=== PATIENT | female | born 1960 | race Caucasian/White ===

== ENCOUNTER 2020-06-23 08:07 | Inpatient (IN) ==
[~2020-06-23 08:07] MED LIST: *HR* FentaNYL (PF) 100 MCG/2 ML VIAL IVP ONE; *HR* Midazolam HCl 2 MG/2 ML VIAL IVP ONE
[2020-06-23] MEDS ORDERED: cefOXitin 2,000 MG in Water for inj. (sterile) 20 ML IVP ONE ×2 (08:39→09:28)
[2020-06-23] MEDS ORDERED: 0.9 % Sodium Chloride 500 ML ONE ×2 (08:44→12:20)
[2020-06-23] MEDS ORDERED: Lidocaine/EPI 1:100k 1% 50 ML VIAL ONE ×2 (08:44→12:20)
[2020-06-23] MEDS ORDERED: Ringers Solution, Lactated 1,000 ML IVC SCH (08:45)
[2020-06-23 10:02] LABS: Prothrombin Time 11.5 Seconds (9.4-12.1)
[2020-06-23 10:08] LABS: Basophils % 0.6 %; Eosinophils # 0.2 K/mcL (0.0-0.6); Eosinophils % 3.9 %; Hematocrit 41.3 % (35.3-44.9); Hemoglobin 13.8 g/dL (11.5-15.4); Lymphocytes # 1.6 K/mcL (0.6-4.6); Lymphocytes % 35.3 %; Mean Corpuscular HGB Conc 33.4 g/dL (31.6-35.5); Mean Corpuscular Hemoglobin 28.4 pg (28.0-33.3); Mean Platelet Volume 9.9 fL (9.4-12.4); Monocytes # 0.4 K/mcL (0.0-1.3); Monocytes % 7.5 %; Neutrophils # 2.4 K/mcL (1.6-8.9); Platelet Count 197 K/mcL (140-400); Red Blood Count 4.86 M/mcL (3.82-4.97); Red Cell Distribution Width 12.6 % (11.5-14.5); Segmented Neutrophils % 52.7 %; White Blood Count 4.6 K/mcL (4.3-11.1)
[2020-06-23] MEDS ORDERED: Isovue-300 150 ML INFUS..BTL IVP ONE ×2 (10:26→12:33)
[2020-06-23] MEDS ORDERED: Lidocaine HCL 4 ML Topical Solution (Laryng-O-Jet Kit Sterile Pak) TP ONE (11:06)
[2020-06-23] MEDS ORDERED: Dexamethasone 4 MG/ML VIAL ONE (11:06)
[2020-06-23] MEDS ORDERED: Ondansetron 4 MG/2 ML VIAL ONE (11:06)
[2020-06-23] MEDS ORDERED: *HR* Succinylcholine 200 MG/10 ML VIAL IVP ONE (11:06)
[2020-06-23] MEDS ORDERED: Lidocaine -MPF 2% 2 ML VIAL ONE (11:06)
[2020-06-23] MEDS ORDERED: *HR* Propofol 200 MG/20 ML VIAL IVP ONE (11:07)
[2020-06-23] MEDS ORDERED: *HR* FentaNYL (PF) 100 MCG/2 ML VIAL ONE ×2 (11:07→11:10)
[2020-06-23] MEDS ORDERED: *HR* Midazolam HCl 2 MG/2 ML VIAL IVP ONE (11:09)
[2020-06-23] MEDS ORDERED: *HR* FentaNYL (PF) 100 MCG/2 ML VIAL IVP ONE (11:09)
[2020-06-23] MEDS ORDERED: *HR* Midazolam HCl 2 MG/2 ML VIAL ONE (11:10)
[2020-06-23] MEDS ORDERED: Isovue-300 50ML VIAL ONE (12:09)
[2020-06-23] MEDS ORDERED: Ondansetron 4 MG/2 ML VIAL IVP ONE (12:20)
[2020-06-23] MEDS ORDERED: Naloxone 0.4 MG/ML INJ IVP PRN (13:35)
[2020-06-23] MEDS ORDERED: Ondansetron 4 MG/2 ML VIAL IVP PRN (13:35)
[2020-06-23] MEDS ORDERED: Acetaminophen 325 MG TABLET PO PRN (13:35)
[2020-06-23 14:40] LABS: Hematocrit 40.6 % (35.3-44.9); Hemoglobin 13.2 g/dL (11.5-15.4); Mean Corpuscular HGB Conc 32.5 g/dL (31.6-35.5); Mean Corpuscular Hemoglobin 27.9 pg (28.0-33.3); Mean Corpuscular Volume 85.8 fL (83.0-100.0); Platelet Count 153 K/mcL (140-400); Red Blood Count 4.73 M/mcL (3.82-4.97); Red Cell Distribution Width 12.4 % (11.5-14.5); White Blood Count 2.6 K/mcL (4.3-11.1)
[2020-06-23 15:00] LABS: Lymphocytes # 0.5 K/mcL (0.6-4.6); Monocytes # 0.1 K/mcL (0.0-1.3); Platelet Estimate Normal (Normal); Potassium 3.8 mEq/L (3.5-5.1)
[2020-06-23] MEDS ORDERED: 0.9 % Sodium Chloride 1,000 ML IVC ONE (15:00)
[2020-06-23] MEDS ORDERED: 0.9 % Sodium Chloride 500 ML IVC ONE (15:00)
[2020-06-23 15:01] LABS: Anisocytosis 1+ (Not Present); Large Platelets Present (Not Present)
[2020-06-23] MEDS: Piperacillin/Tazobactam 3.375 GM in 0.9 % Sodium Chloride Mini Bag 100 ML IVPB SCH ×2 (15:12→23:39)
[2020-06-23] MEDS ORDERED: Piperacillin/Tazobactam 3.375 GM in 0.9 % Sodium Chloride Mini Bag 100 ML IVPB SCH (16:00)
[2020-06-23] MEDS: 0.9 % Sodium Chloride 1,000 ML IVC SCH (16:52)
[2020-06-23] MEDS ORDERED: Acetaminophen IV 1,000 MG/100 ML INFUS..BTL IVPB SCH (18:00)
[2020-06-23 18:13] LABS: Bacteria,Urine Few per hpf (None-Few); Bilirubin,Urine Negative (Negative); Blood,Urine Large (Negative); Clarity,Urine Turbid (Clear); Color,Urine Light-Orange (Yellow); Glucose,Urine (UA) Normal (Normal); Ketones,Urine Negative (Negative); Leukocyte Esterase,Urine Large (Negative); Nitrite,Urine Negative (Negative); Protein,Urine 50 mg/dL (Neg-Trace); RBC,Urine TNTC per hpf (0-3); Specific Gravity,Urine 1.016 (1.010-1.025); Urobilinogen,Urine Normal (Normal); WBC,Urine 30-50 per hpf (0-3)
[2020-06-24] MEDS: 0.9 % Sodium Chloride 1,000 ML IVC SCH ×3 (01:28→19:14)
[2020-06-24 06:40] LABS: Hematocrit 34.3 % (35.3-44.9); Mean Corpuscular HGB Conc 33.2 g/dL (31.6-35.5); Mean Corpuscular Hemoglobin 29.1 pg (28.0-33.3); Mean Corpuscular Volume 87.5 fL (83.0-100.0); Mean Platelet Volume 10.1 fL (9.4-12.4); Platelet Count 114 K/mcL (140-400); Red Blood Count 3.92 M/mcL (3.82-4.97); Red Cell Distribution Width 13.2 % (11.5-14.5)
[2020-06-24 06:46] LABS: Hemoglobin 11.4 g/dL (11.5-15.4)
[2020-06-24 07:00] LABS: Potassium 3.8 mEq/L (3.5-5.1)
[2020-06-24 07:14] LABS: Neutrophils # 14.6 K/mcL (1.6-8.9)
[2020-06-24 07:15] LABS: Lymphocytes # 0.7 K/mcL (0.6-4.6); Monocytes # 0.7 K/mcL (0.0-1.3); Platelet Estimate Decreased (Normal)
[2020-06-24] MEDS ORDERED: 0.9 % Sodium Chloride 1,000 ML IVC ONE (07:15)
[2020-06-24] MEDS: Piperacillin/Tazobactam 3.375 GM in 0.9 % Sodium Chloride Mini Bag 100 ML IVPB SCH ×3 (07:22→23:45)
[2020-06-25] MEDS: 0.9 % Sodium Chloride 1,000 ML IVC SCH ×2 (05:09→14:55)
[2020-06-25 05:37] LABS: Red Cell Distribution Width 13.7 % (11.5-14.5)
[2020-06-25 05:39] LABS: Hemoglobin 10.7 g/dL (11.5-15.4); Mean Corpuscular HGB Conc 32.4 g/dL (31.6-35.5); Mean Corpuscular Hemoglobin 28.5 pg (28.0-33.3); Red Blood Count 3.75 M/mcL (3.82-4.97); White Blood Count 13.9 K/mcL (4.3-11.1)
[2020-06-25 05:46] LABS: Platelet Count 89 K/mcL (140-400)
[2020-06-25 05:52] LABS: BUN/Creatinine Ratio 14 (6-26); Blood Urea Nitrogen 14 mg/dL (8-23); Calcium 8.2 mg/dL (8.6-10.3); Carbon Dioxide 21 mEq/L (23-29); Chloride 115 mEq/L (98-107); Glucose 182 mg/dL (70-105); Osmolality,Calculated 295 (280-300); Potassium 3.7 mEq/L (3.5-5.1); Sodium 140 mEq/L (136-145); eGFR For African Americans > 60 (> 60); eGFR For Non-African Americans 54 (> 60)
[2020-06-25 06:26] LABS: Eosinophils # 0.3 K/mcL (0.0-0.6); Lymphocytes # 1.1 K/mcL (0.6-4.6); Monocytes # 0.6 K/mcL (0.0-1.3); Platelet Estimate Decreased (Normal)
[2020-06-25] MEDS: Piperacillin/Tazobactam 3.375 GM in 0.9 % Sodium Chloride Mini Bag 100 ML IVPB SCH ×2 (07:06→14:56)
[2020-06-25] MEDS: Acetaminophen 325 MG TABLET PO PRN ×2 (11:40→21:10)
[2020-06-25 20:24] LABS: Adenovirus F 40/41 PCR Not detected (Not detect); Astrovirus PCR Not detected (Not detect); C.difficile Toxin A/B Gene PCR Not detected (Not detect); Campylobacter by PCR Not detected (Not detect); Cryptosporidium by PCR Not detected (Not detect); Cyclospora cayetanensis PCR Not detected (Not detect); E. coli O157 by PCR Not detected (Not detect); Entamoeba histolytica PCR Not detected (Not detect); Enteroaggregative E.coli(EAEC) Not detected (Not detect); Enteropathogenic E.coli(EPEC) Not detected (Not detect); Enterotoxigenic E.coli (ETEC) Not detected (Not detect); Giardia lamblia PCR Not detected (Not detect); Norovirus GI/GII PCR Not detected (Not detect); Plesiomonas shigelloides PCR Not detected (Not detect); Rotavirus A PCR Not detected (Not detect); Salmonella PCR Not detected (Not detect); Sapovirus PCR Not detected (Not detect); Shig/EnteroinvasiveE coli EIEC Not detected (Not detect); Shigalike tox-prod E coli STEC Not detected (Not detect); Vibrio PCR Not detected (Not detect); Vibrio cholerae PCR Not detected (Not detect); Yersinia enterocolitica PCR Not detected (Not detect)
[2020-06-26] MEDS: Piperacillin/Tazobactam 3.375 GM in 0.9 % Sodium Chloride Mini Bag 100 ML IVPB SCH ×3 (00:27→17:32)
[2020-06-26] MEDS: 0.9 % Sodium Chloride 1,000 ML IVC SCH ×3 (00:28→22:36)
[2020-06-26 04:53] LABS: Basophils # 0.1 K/mcL (0.0-0.2); Basophils % 0.5 %; Eosinophils # 0.3 K/mcL (0.0-0.6); Eosinophils % 1.9 %; Hematocrit 34.4 % (35.3-44.9); Hemoglobin 11.2 g/dL (11.5-15.4); Immature Granulocytes % 2.9 % (0-4); Lymphocytes # 1.5 K/mcL (0.6-4.6); Lymphocytes % 11.6 %; Mean Corpuscular HGB Conc 32.6 g/dL (31.6-35.5); Mean Corpuscular Hemoglobin 28.4 pg (28.0-33.3); Mean Corpuscular Volume 87.1 fL (83.0-100.0); Mean Platelet Volume 11.2 fL (9.4-12.4); Monocytes # 0.6 K/mcL (0.0-1.3); Monocytes % 4.8 %; Neutrophils # 10.1 K/mcL (1.6-8.9); Platelet Count 122 K/mcL (140-400); Red Blood Count 3.95 M/mcL (3.82-4.97); Red Cell Distribution Width 13.5 % (11.5-14.5); Segmented Neutrophils % 78.3 %; White Blood Count 12.9 K/mcL (4.3-11.1)
[2020-06-26 05:10] LABS: BUN/Creatinine Ratio 8 (6-26); Blood Urea Nitrogen 8 mg/dL (8-23); Calcium 8.8 mg/dL (8.6-10.3); Carbon Dioxide 22 mEq/L (23-29); Chloride 118 mEq/L (98-107); Glucose 88 mg/dL (70-105); Osmolality,Calculated 300 (280-300); Potassium 3.8 mEq/L (3.5-5.1); Sodium 146 mEq/L (136-145); eGFR For African Americans > 60 (> 60); eGFR For Non-African Americans 54 (> 60)
[2020-06-26] MEDS: Acetaminophen 325 MG TABLET PO PRN (07:50)
[2020-06-26] MEDS ORDERED: 0.9 % Sodium Chloride 500 ML ONE ×2 (08:47→10:25)
[2020-06-26] MEDS ORDERED: *HR* FentaNYL (PF) 100 MCG/2 ML VIAL ONE ×2 (10:25→17:02)
[2020-06-26] MEDS ORDERED: *HR* FentaNYL (PF) 100 MCG/2 ML VIAL IVP ONE (10:33)
[2020-06-26] MEDS ORDERED: Isovue-300 150 ML INFUS..BTL IVP ONE (10:38)
[2020-06-26] MEDS ORDERED: amLODIPine 5 MG TABLET PO SCH (13:15)
[2020-06-26] MEDS ORDERED: Isovue-300 50ML VIAL ONE ×2 (15:52→16:23)
[2020-06-26] MEDS ORDERED: Lidocaine 1% 20 ML MDV ONE (16:20)
[2020-06-26] MEDS ORDERED: *HR* HYDROmorphone PF 0.5 MG/0.5 ML SYRINGE IVP PRN (16:28)
[2020-06-26] MEDS ORDERED: Ondansetron 4 MG/2 ML VIAL IVP PRN ×2 (16:28→21:53)
[2020-06-26] MEDS ORDERED: *HR* Midazolam HCl 2 MG/2 ML VIAL ONE (17:02)
[2020-06-26] MEDS ORDERED: *HR* Propofol 200 MG/20 ML VIAL IVP ONE (17:02)
[2020-06-26] MEDS ORDERED: *HR* Succinylcholine 200 MG/10 ML VIAL IVP ONE (17:02)
[2020-06-26] MEDS ORDERED: Ondansetron 4 MG/2 ML VIAL ONE (18:12)
[2020-06-26] MEDS ORDERED: Dexamethasone 4 MG/ML VIAL ONE (18:12)
[2020-06-26] MEDS ORDERED: *HR* HYDROMORPHONE 2 MG/ML VIAL ONE (19:23)
[2020-06-26] MEDS ORDERED: Acetaminophen 325 MG TABLET PO PRN (21:53)
[2020-06-26] MEDS ORDERED: Naloxone 0.4 MG/ML INJ IVP PRN (21:53)
[2020-06-26] MEDS: *HR* HYDROcodone/Acet 10/325 mg TABLET PO PRN (22:40)
[2020-06-27 02:34] LABS: Mean Corpuscular Volume 84.3 fL (83.0-100.0); Red Cell Distribution Width 13.5 % (11.5-14.5)
[2020-06-27 02:36] LABS: Basophils # 0.1 K/mcL (0.0-0.2); Basophils % 0.4 %; Hematocrit 32.2 % (35.3-44.9); Immature Granulocytes % 1.8 % (0-4); Immature Platelets 6.9 % (1.1-6.1); Lymphocytes % 6.6 %; Mean Corpuscular HGB Conc 34.2 g/dL (31.6-35.5); Mean Corpuscular Hemoglobin 28.8 pg (28.0-33.3); Mean Platelet Volume 11.5 fL (9.4-12.4); Monocytes # 0.5 K/mcL (0.0-1.3); Monocytes % 3.1 %; Neutrophils # 13.4 K/mcL (1.6-8.9); Nucleated Red Blood Cells 0.2 /100 WBC (0); Platelet Count 131 K/mcL (140-400); Red Blood Count 3.82 M/mcL (3.82-4.97); Segmented Neutrophils % 88.1 %; White Blood Count 15.2 K/mcL (4.3-11.1)
[2020-06-27 02:47] LABS: BUN/Creatinine Ratio 13 (6-26); Blood Urea Nitrogen 12 mg/dL (8-23); Calcium 8.5 mg/dL (8.6-10.3); Carbon Dioxide 17 mEq/L (23-29); Chloride 113 mEq/L (98-107); Glucose 164 mg/dL (70-105); Osmolality,Calculated 297 (280-300); Potassium 4.5 mEq/L (3.5-5.1); Sodium 142 mEq/L (136-145); eGFR For African Americans > 60 (> 60); eGFR For Non-African Americans 59 (> 60)
[2020-06-27] MEDS: *HR* HYDROcodone/Acet 10/325 mg TABLET PO PRN (08:34)
[2020-06-27] MEDS: Piperacillin/Tazobactam 3.375 GM in 0.9 % Sodium Chloride Mini Bag 100 ML IVPB SCH ×2 (08:36→08:37)
[2020-06-27] MEDS: 0.9 % Sodium Chloride 1,000 ML IVC SCH (08:36)
[2020-06-27] MEDS ORDERED: amLODIPine 5 MG TABLET PO SCH (09:00)
[2020-06-27 10:44] VITALS: BP 98/57
== END 2020-06-27 14:38 | disposition home or self-care (01) | DRG 854 ==
LOC: SAMDAY 08:07 → 3ANU 13:33
PROVIDERS: ADMIT Urology; ATTEND Urology